=== PATIENT | male | born 1955 | race Caucasian/White ===

== ENCOUNTER 2017-06-11 09:55 | Day surgery (SDC) | payer MEDICAID ==
[2017-06-11] MEDS ORDERED: Scopolamine 1.5 MG Transdermal Patch TRDERM ONE (10:00)
[2017-06-11] MEDS ORDERED: Acetaminophen 500 MG Tab PO ONE (10:00)
[2017-06-11] MEDS ORDERED: Gabapentin 300 MG Cap PO ONE (10:00)
[2017-06-11] MEDS ORDERED: Lactated Ringers 1,000 ML IV SCH (10:00)
[2017-06-11] MEDS: ceFAZolin 2 GM in Premix Bag 1 BAG IV ONE ×2 (11:34→13:13)
[2017-06-11] MEDS ORDERED: Ropivacaine 49.25 ML, Ketorolac 30 MG, EPINEPHrine 0.5 MG, cloNIDine 80 MCG, Sodium Chl... INJECT SCH ×5 (12:53)
[2017-06-11] MEDS ORDERED: Morphine 2 MG/ML Syringe IVPUSH PRN (15:20)
[2017-06-11] MEDS ORDERED: traMADol 50 MG Tab PO PRN (15:20)
[2017-06-11] MEDS ORDERED: Naloxone 0.4 MG/ML SDV IVPUSH PRN (15:20)
[2017-06-11] MEDS ORDERED: diphenhydrAMINE 50 MG/ML SDV IVPUSH PRN (15:20)
[2017-06-11] MEDS ORDERED: Bisacodyl 5 MG Tab PO PRN (15:20)
[2017-06-11] MEDS ORDERED: Ondansetron 4 MG/2 ML SDV IVPUSH PRN (15:20)
[2017-06-11] MEDS ORDERED: Sennosides 8.6 MG Tab PO PRN (15:20)
[2017-06-11] MEDS ORDERED: Magnesium Hydroxide 400 MG/5 ML Susp 30 ML Cup PO PRN (15:20)
[2017-06-11] MEDS ORDERED: Docusate Sodium 100 MG Cap PO PRN (15:20)
[2017-06-11] MEDS ORDERED: Zolpidem 5 MG Tab PO PRN (15:20)
[2017-06-11] MEDS ORDERED: oxyCODONE 5 MG Tab PO PRN (16:15)
[2017-06-11] MEDS: Acetaminophen 1,000 MG in Premix Bag 1 BAG IV SCH ×2 (17:21→21:44)
[2017-06-11] MEDS: ceFAZolin 2 GM in Premix Bag 1 BAG IV SCH (20:54)
[2017-06-11] MEDS: Ketorolac 30 MG/ML SDV IVPUSH SCH (20:59)
[2017-06-11] MEDS: Sodium Chloride 0.9% 10 ML Syringe FLUSH PRN ×3 (21:00→22:04)
[2017-06-12] MEDS: Acetaminophen 1,000 MG in Premix Bag 1 BAG IV SCH ×2 (04:30→10:45)
[2017-06-12] MEDS: Sodium Chloride 0.9% 10 ML Syringe FLUSH PRN ×2 (04:48→05:24)
[2017-06-12] MEDS: Ketorolac 30 MG/ML SDV IVPUSH SCH (04:48)
[2017-06-12] MEDS: ceFAZolin 2 GM in Premix Bag 1 BAG IV SCH (04:55)
[2017-06-12] MEDS ORDERED: Sodium Chloride 0.9% 10 ML Syringe FLUSH SCH (09:00)
[2017-06-12] MEDS ORDERED: Aspirin 325 MG Tab.EC PO SCH (09:00)
--- NOTE | 2017-06-12 09:49 | PCM.DCSUM1 ---
Discharge Summary - Hospital Course Brief History: Patient was seen in clinic for right primary osteoarthritis. He was consented for right total knee arthroplasty. The procedure was performed on 06/11/2017. - Discharge Data Discharge Date: 06/12/17 Discharge Disposition: Home, Self-Care 01 Condition: Good - Discharge Diagnosis/Problem(s) (1) Primary osteoarthritis of right knee SNOMED Code(s): 420760114730281, [id number] ICD Code: M17.11 - UNILATERAL PRIMARY OSTEOARTHRITIS, RIGHT KNEE Status: Acute Current Visit: Yes - Patient Summary/Data Consults: Consultations 06/11/17 15:20 OT Evaluation and Treatment [CONS] Routine Please Evaluate and Treat. OT Reason for Consult: Strengthening This query below is only for informational purposes and is not editable. Admission Diagnosis/Problem: Total replacement of right knee joint PT Evaluation and Treatment [CONS] Routine Please Evaluate and Treat. PT Reason for Consult: Strengthening This query below is only for informational purposes and is not editable. Admission Diagnosis/Problem: Total replacement of right knee joint Respiratory Care Assess and Treatment [CONS] Routine Comment: Physician Instructions: Post-op Pneumonia Prevention - Patient Instructions Diet: Usual Diet as Tolerated Activity: Apply Ice, As Tolerated Driving: Do Not Drive Showering/Bathing: May Shower Wound/Incision Care: Keep Operative Site/Wound Site Clean and Dry Notify Provider of: Fever, Increased Pain, Swelling and Redness, Drainage - Discharge Plan Prescriptions/Med Rec: oxyCODONE HCl/Acetaminophen [Percocet 5-325 mg Tablet] 1 each PO Q6HR PRN #120 tablet PRN Reason: Pain Aspirin [Ecotrin] 325 mg PO DAILY #30 tab.ec Home Medications: Home Meds Naproxen Sodium [Aleve] 440 mg PO ASDIRECTED PRN 06/11/17 [History] Aspirin [Ecotrin] 325 mg PO DAILY #30 tab.ec 06/12/17 [Rx] oxyCODONE HCl/Acetaminophen [Percocet 5-325 mg Tablet] 1 each PO Q6HR PRN #120 tablet 06/12/17 [Rx] Patient Handouts: Total Knee Replacement, Care After - General Info Date of Service: 06/12/17 Functional Status: Reports: Pain Controlled - Review of Systems General: Reports: No Symptoms HEENT: Reports: No Symptoms Pulmonary: Reports: No Symptoms Cardiovascular: Reports: No Symptoms Gastrointestinal: Reports: No Symptoms Genitourinary: Reports: No Symptoms Musculoskeletal: Reports: Leg Pain, Joint Pain Skin: Reports: No Symptoms Neurological: Reports: No Symptoms Psychiatric: Reports: No Symptoms - Patient Data Vitals - Most Recent: Last Vital Signs Temp 98.1 F 06/12/17 08:00 Pulse 45 L 06/12/17 08:00 Resp 18 06/12/17 08:00 BP 103/48 L 06/12/17 08:00 Pulse Ox 95 06/12/17 08:00 Weight - Most Recent: 185 lb I&O - Last 24 hours: Intake & Output 06/11/17 06/12/17 06/12/17 22:59 06:59 14:59 Intake Total 800 850 Output Total 0 100 Balance 800 750 Lab Results - Last 24 hrs: Laboratory Results - last 24 hr 06/12/17 06/12/17 Range/Units 06:45 06:45 WBC 9.5 (4.5-12.0) X10-3/uL RBC 3.65 L (4.30-5.75) x10(6)uL Hgb 12.2 (11.5-15.5) g/dL Hct 36.0 (30.0-51.3) % MCV 98.5 H (80-96) fL MCH 33.3 (27.7-33.6) pg MCHC 33.8 (32.2-35.4) g/dL RDW 12.5 (11.5-15.5) % Plt Count 251 (125-369) X10(3)uL MPV 7.9 (7.4-10.4) fL Neut % (Auto) 66.7 (46-82) % Lymph % (Auto) 20.8 (13-37) % [place] % (Auto) 11.1 (4-12) % Eos % (Auto) 1 (1.0-5.0) % Baso % (Auto) 0 (0-2) % Neut # (Auto) 6.3 (1.6-8.3) # Lymph # (Auto) 2.0 (0.6-5.0) # [place] # (Auto) 1.1 (0.0-1.3) # Eos # (Auto) 0.1 (0.0-0.8) # Baso # (Auto) 0.0 (0.0-0.2) # Sodium 138 (135-145) mmol/L Potassium 4.2 (3.5-5.3) mmol/L Chloride 103 (100-110) mmol/L Carbon Dioxide 26 (21-32) mmol/L BUN 15 (7-18) mg/dL Creatinine 1.1 (0.70-1.30) mg/dL Est Cr Clr Drug Dosing 65.64 mL/min Estimated GFR (MDRD) > 60 (>60) BUN/Creatinine Ratio 13.6 (9-20) Glucose 94 (80-116) mg/dL Calcium 8.0 L (8.6-10.2) mg/dL Total Bilirubin 0.9 (0.1-1.3) mg/dL AST 18 D (5-25) IU/L ALT 20 D (12-36) U/L Alkaline Phosphatase 60 (56-112) IU/L Total Protein 5.7 L (6.0-8.0) g/dL Albumin 3.0 L (3.2-4.6) g/dL Globulin 2.7 g/dL Albumin/Globulin Ratio 1.1 Med Orders - Current: Current Medications Aspirin (Ecotrin) 325 mg PO DAILY [facility] Last Admin: 06/12/17 08:18 Dose: 325 mg Bisacodyl (Dulcolax) 10 mg PO DAILY PRN PRN Reason: Constipation Diazepam (Valium) 5 mg IVPUSH Q6H PRN PRN Reason: Spasms Diphenhydramine HCl (Benadryl) 25 mg IVPUSH Q4H PRN PRN Reason: Itching Docusate Sodium (Colace) 100 mg PO BID PRN PRN Reason: Constipation Lactated Ringer's (Ringers, Lactated) 1,000 mls @ 125 mls/hr IV ASDIRECTED [facility] Acetaminophen 1,000 mg/ Premix 100 mls @ 400 mls/hr IV Q6H [facility] Stop: 06/12/17 10:14 Last Admin: 06/12/17 04:30 Dose: 400 mls/hr Magnesium Hydroxide (Milk Of Magnesia) 30 ml PO BID PRN PRN Reason: Constipation Melatonin (Melatonin) 5 mg PO BEDTIME PRN PRN Reason: Sleep Morphine Sulfate (Morphine) 2 mg IVPUSH Q2H PRN PRN Reason: SEVERE Pain Naloxone HCl (Narcan) 0.1 mg IVPUSH ONETIME PRN PRN Reason: Oversedation Ondansetron HCl (Zofran) 8 mg IVPUSH Q4H PRN PRN Reason: Nausea/Vomiting Oxycodone HCl (Oxycodone) 10 mg PO Q4H PRN PRN Reason: SEVERE PAIN Senna (Senna) 8.6 mg PO BID PRN PRN Reason: Constipation Sodium Chloride (Saline Flush) 10 ml FLUSH ASDIRECTED PRN PRN Reason: Keep Vein Open Last Admin: 06/12/17 05:24 Dose: 10 ml Sodium Chloride (Saline Flush) 10 ml FLUSH DAILY [facility] Last Admin: 06/12/17 08:19 Dose: 10 ml Tramadol HCl (Ultram) 100 mg PO Q6H PRN PRN Reason: MODERATE PAIN Zolpidem Tartrate (Ambien) 5 mg PO BEDTIME PRN PRN Reason: Sleep Discontinued Medications Acetaminophen (Tylenol Extra Strength) 1,000 mg PO ONETIME ONE Stop: 06/11/17 10:01 Last Admin: 06/11/17 11:32 Dose: 1,000 mg Ropivacaine 49.25 ml/Ketorolac Tromethamine 30 mg/Epinephrine HCl 0.5 mg/ Clonidine HCl 80 mcg/ Sodium Chloride 48.45 ml 0 ml INJECT ASDIRECTED [facility] Stop: 06/11/17 13:00 Last Admin: 06/11/17 14:38 Dose: 100 syringe Gabapentin (Neurontin) 300 mg PO ONETIME ONE Stop: 06/11/17 10:01 Last Admin: 06/11/17 11:31 Dose: 300 mg Cefazolin Sodium/Dextrose 2 gm (/ Premix) 50 mls @ 100 mls/hr IV ONETIME ONE Stop: 06/11/17 11:58 Last Admin: 06/11/17 13:13 Dose: 100 mls/hr Cefazolin Sodium/Dextrose 2 gm (/ Premix) 50 mls @ 100 mls/hr IV Q8H [facility] Stop: 06/12/17 05:29 Last Admin: 06/12/17 04:55 Dose: 100 mls/hr Ketorolac Tromethamine (Toradol) 30 mg IVPUSH Q8H [facility] Stop: 06/12/17 05:01 Last Admin: 06/12/17 04:48 Dose: 30 mg Scopolamine (Transderm-Scop) 1.5 mg TRDERM ONETIME ONE Stop: 06/11/17 10:01 Last Admin: 06/11/17 11:32 Dose: 1.5 mg - Exam General: Reports: Alert, Oriented HEENT: Reports: EOMI, Mucous Membr. Moist/[place] Neck: Reports: Supple Lungs: Reports: Normal Respiratory Effort Extremities: No Pedal Edema, Normal Capillary Refill, Leg Pain, Limited Range of Motion Skin: Reports: Warm, Intact Wound/Incisions: Reports: Healing Well, Dressing Dry and Intact, No Drainage Neurological: Reports: No New Focal Deficit Psy/Mental Status: Reports: Alert, Normal Affect, Normal Mood Discharge Operative/Procedures - Procedures Performed Operations: Right TKA
--- NOTE | 2017-06-14 10:49 | OR ---
DATE OF OPERATION: 06/11/2017 SURGEON: Keagan Corea DO PREOPERATIVE DIAGNOSIS: Right knee primary osteoarthritis. POSTOPERATIVE DIAGNOSIS: Right knee primary osteoarthritis. PROCEDURE: Right knee total knee arthroplasty. ANESTHESIA: Spinal plus conscious sedation. FLUIDS: Lactated Ringer's solution. ESTIMATED BLOOD LOSS: 100 mL. COMPLICATIONS: None. SPECIMENS: None. DISCHARGE DISPOSITION: Stable to PACU. INSTRUMENTATION: DePuy Attune 7 femur, 8 tibia, 7/10 polyethylene tibial insert. HISTORY AND INDICATIONS FOR THE PROCEDURE: The patient was seen in the clinic by Imelda Perez CNP. 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 Preoperative imaging confirmed the above-mentioned diagnosis. Risks and benefits of the procedure were explained to the patient and informed consent was obtained. DETAILS OF PROCEDURE: The patient was seen preoperatively by myself and the Anesthesia staff in the preoperative holding area where the operative site was marked. He was brought to the operative suite by Anesthesia staff where spinal sedation plus conscious sedation was performed by the Anesthesia staff. All extremities were found to be well padded. The right lower extremity was then prepped and draped in a sterile manner after a well-padded tourniquet was placed on the right thigh. A time-out was called identifying the correct patient, the correct procedure, and the correct site and that antibiotics had been given within an appropriate period of time. The right lower extremity was then exsanguinated. The tourniquet was raised to 250 mmHg for 56 minutes and taken down during cementing. Midline incision was made 3 fingerbreadths proximal to the patella down to the level of the tibial tubercle. Bleeding during the case was controlled with Bovie electrocautery. I then made a medial parapatellar incision using the #10 blade. I then removed the infrapatellar fat pad and then performed a full synovectomy with Bovie electrocautery. I then everted the patella. After everting the patella, I then flexed the knee. I then made my patellar cuts and ensured the thickness was correct. I measured a 41 and then drilled 3 holes and then placed my 41 trial. I then extended the knee and exposed the tibial plateau medially and removed as much as the anterior, medial, and lateral meniscus as possible. After this had occurred, I then flexed the knee and then protected the medial and lateral collaterals with Hohmann's, reamed the distal femoral canal. I then placed my intramedullary guide at 5- degree valgus cut, 9 mm distal cut. I then removed my guide and pins and then placed my posterior condylar guide. This measured a 7. I then drilled my pins using the guide and then placed a chamfer block and then continued to protect the soft tissues made by inferior, posterior, and chamfer cuts. After this had been performed, I then used an osteotome to complete my cuts and then removed any extra bone as necessary. I then worked on tibial preparation. I made my proximal tibial cut with 5 degrees posterior slope and then removed my posterior, medial, and lateral meniscus and any redundant capsule. This was done using a blunt Hohmann for anteriorization of the tibia. I then placed my 8 baseplate, and then using the tower, reamed the proximal tibia and then tamped it. This was in line with the second metatarsal. After this had been completed, I applied my femoral and tibial components and then inserted my polyethylene trials. This provided good stability throughout range of motion. I did ensure that the medial collateral ligament was in fact intact as well and it was very taut and broad. I then drilled my lugs for my distal femur. I then removed all of my trial components and then copiously irrigated with saline. We then cemented our final components in place, held the knee out in extension and allowed the cement to dry. After this had been accomplished, we then removed any extra cement and then I trialed with a 7-10 insert which provided good stability throughout range of motion. I then inserted my final polyethylene insert, copiously irrigated with saline, and then closed the medial patellar arthrotomy with two #5 Ethibond sutures, followed by #1 StrataFix, followed by #2 StrataFix, followed by skin benny, followed by Betadine soaked Adaptic, and sterile dressing. The patient was then taken to the PACU in stable condition. Please note that the patient did not have a Hester inserted for this procedure as he was thought to be young and should be able to urinate as soon as the spinal wears off. /[id number] MAGY/JEFF
--- NOTE | 2017-06-14 13:53 | CR ---
INDICATION: Postop - follow-up TKA. RIGHT KNEE: AP and lateral portable supine views of the right knee were obtained 06/11/2017, and compared with preop study of 06/02/2017, now revealing a TKA in good position and alignment, without evidence of a complicating process. Skin benny are noted anteriorly. IMPRESSION: Satisfactory appearance post total knee arthroplasty. NHUNG
== END 2017-06-12 12:20 | disposition home or self-care (01) ==
LOC: FB.SDS 09:55 → FB.MS 16:27 → FB.SDS 06-12 12:20
PROVIDERS: ATTEND Orthopaedic Surgery
DX: M17.11 Unilateral primary osteoarthritis, right knee (principal); Z79.82 Long term (current) use of aspirin; Z79.899 Other long term (current) drug therapy; F17.200 Nicotine dependence, unspecified, uncomplicated
CPT/HCPCS: 27447; 36415; 73560; 80053; 85025; 86850; 86900; 86901; 94150; 97165; A9270; J0131; J0171; J0690; J0735; J1885; J2795; J7050